=== PATIENT | female | born 1965 | race Two or more races ===

== ENCOUNTER 2022-08-08 21:28 | Emergency (ER) | payer MEDICAID, OTHER ==
[~2022-08-08] VITALS: Ht 162.6 cm; Wt 79.4 kg
--- NOTE | 2022-08-08 21:42 | NUR ---
OFFERED PT URINE CUP; PT YELLED AT THREW IT ON THE FLOOR. DR CATNOR DO AWARE. WILL TRY AGAIN LATER
--- NOTE | 2022-08-08 21:47 | NUR ---
[id number] FROM [facility] C/O POSSIBLE SEIZURE D/T SHAKINESS PT C/O H/A X30 MINS. DRANK COFFEE. PLACED IN BED, AAOX4, TALKATIVE- LOUD, BREATHING EVEN AND UNLABORED SATURATING AT 96%RA.
[2022-08-08] MEDS ORDERED: hydrALAZINE HCL IV 20 MG VIAL IV ONE (22:00)
[2022-08-08] MEDS ORDERED: hydrALAZINE HCL IV 20 MG VIAL ONE (22:32)
--- NOTE | 2022-08-08 22:35 | NUR ---
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
[2022-08-08 22:51] LABS: BASOPHILS % (AUTO) 0.7 % (0.0-2.0); EOSINOPHILS % (AUTO) 2.3 % (0.0-6.0); HEMATOCRIT 34 % (33-45); HEMOGLOBIN 11.2 g/dL (11.5-14.8); LYMPHOCYTES # (AUTO) 1.7 K/uL (0.8-4.8); LYMPHOCYTES % (AUTO) 26.3 % (20.0-44.0); MEAN CORPUSCULAR HGB CONC 33 g/dl (31.0-36.0); MEAN CORPUSCULAR VOLUME 87 fL (82-100); MONOCYTES # (AUTO) 0.4 K/uL (0.1-1.30); MONOCYTES % (AUTO) 5.8 % (2.0-12.0); NEUTROPHILS # (AUTO) 4.3 K/uL (1.8-8.9); NEUTROPHILS % (AUTO) 64.9 % (43.0-81.0); PLATELET COUNT (AUTO) 327 K/uL (150-450); RED BLOOD CELL COUNT(AUTO) 3.93 MIL/uL (4.0-5.2); WHITE BLOOD COUNT (AUTO) 6.6 K/uL (4.3-11.0)
[2022-08-08 23:01] LABS: CALCIUM, SERUM 8.8 mg/dL (8.5-10.1); CARBON DIOXIDE 25 mmol/L (21-32); CHLORIDE 106 mmol/L (98-107); CREATININE 0.9 mg/dL (0.6-1.3); GLUCOSE 93 mg/dL (74-106); POTASSIUM 3.6 mmol/L (3.5-5.1); SODIUM SERUM 139 mmol/L (136-145); UREA NITROGEN, BLOOD 18 mg/dL (7-18)
[2022-08-08 23:09] LABS: ALANINE AMINOTRANSFERASE 22 U/L (12-78); ALBUMIN 3.5 g/dL (3.4-5.0); ALKALINE PHOSPHATASE 75 U/L (46-116); ASPARTATE AMINOTRANSFERASE 19 U/L (15-37); BILIRUBIN,DIRECT 0.1 mg/dL (0.0-0.2); BILIRUBIN,TOTAL 0.2 mg/dL (0.2-1.0); TOTAL PROTEIN, SERUM 6.5 g/dL (6.4-8.2)
--- NOTE | 2022-08-08 23:13 | NUR ---
PATIENT TAKEN TO CT VIA [facility]INS
--- NOTE | 2022-08-09 00:05 | NUR ---
FF UP LAB ABOUT REPEAT TROP AT 0030H
--- NOTE | 2022-08-09 00:40 | NUR ---
SCALLOP RAKER AT PT'S BEDSIDE
--- NOTE | 2022-08-09 02:12 | NUR ---
[facility] CALLED ETA 30-45 MINUTES.
--- NOTE | 2022-08-09 02:42 | NUR ---
[facility] AT PT'S BEDSIDE TO D/C PT
--- NOTE | 2022-08-09 03:23 | NUR ---
Patient discharged to home in stable condition. Written and verbal after care instructions given. Patient verbalizes understanding of instruction.
[2022-08-09 03:24] VITALS: BP 134/81
== END 2022-08-09 03:25 | disposition home or self-care (01) ==
LOC: ER 21:30
DX: I16.0 Hypertensive urgency (principal); R51.9 Headache, unspecified; I10 Essential (primary) hypertension; K21.9 Gastro-esophageal reflux disease without esophagitis; Z59.01 Sheltered homelessness
CPT/HCPCS: 36415; 70450-TC; 71045-TC; 80048-TC; 80076-TC; 84484-TC; 85025-TC; 85730-TC; J0360

== ENCOUNTER 2023-11-18 00:33 | Emergency (ER) | payer MEDICAID ==
[~2023-11-18] VITALS: Ht 162.6 cm; Wt 77.1 kg
[2023-11-18] MEDS: IBUPROFEN 400 MG TABLET PO ONE (01:42)
[2023-11-18] MEDS: ONDANSETRON 4 MG TAB.RAPDIS SL ONE (01:57)
[2023-11-18 04:42] VITALS: BP 131/75; TEMP 98.1; O2SAT 98
== END 2023-11-18 04:43 | disposition home or self-care (01) ==
LOC: ER 00:44
DX: M25.551 Pain in right hip (principal); M25.511 Pain in right shoulder; I10 Essential (primary) hypertension; K21.9 Gastro-esophageal reflux disease without esophagitis; F19.10 Other psychoactive substance abuse, uncomplicated; Z59.01 Sheltered homelessness; W18.39XA Other fall on same level, initial encounter; Y93.89 Activity, other specified; Y92.89 Other specified places as the place of occurrence of the external cause; Y99.8 Other external cause status

== ENCOUNTER 2024-03-15 17:25 | Inpatient (IN) | payer MEDICAID ==
[~2024-03-15] VITALS: Ht 162.6 cm; Wt 83.5 kg
[2024-03-15] MEDS ORDERED: HYDROMORPHONE 1 MG/1 ML DISP.SYRIN ONE (17:46)
[2024-03-15] MEDS ORDERED: ONDANSETRON HCL/PF 4 MG/2 ML VIAL ONE (17:46)
[2024-03-15] MEDS: IV NS 0.9% 1,000 ML BAG IV ONE (18:00)
[2024-03-15] MEDS ORDERED: ALBU8.5H8 IH (18:23)
[2024-03-15] MEDS ORDERED: CARV3.122 PO (18:23)
[2024-03-15] MEDS ORDERED: OMEP20CA15 PO (18:23)
[2024-03-15] MEDS ORDERED: GABA300C PO (18:23)
[2024-03-15] MEDS ORDERED: LISI1TAB55 PO (18:23)
[2024-03-15] MEDS ORDERED: ATOR20TA PO (18:23)
[2024-03-15] MEDS ORDERED: FLUT1DIS3 INH (18:23)
[2024-03-15] MEDS ORDERED: DULO20CA19 PO (18:23)
[2024-03-15] MEDS ORDERED: IBUP-1957 PO (18:23)
[2024-03-15] MEDS ORDERED: ACET325T53 PO (18:23)
[2024-03-15] MEDS: HYDROMORPHONE INJ 2 MG/ML DISP.SYRIN IV ONE (18:25)
[2024-03-15 18:30] LABS: BASOPHILS % (AUTO) 0.6 % (0.0-2.0); EOSINOPHILS # (AUTO) 0.2 K/uL (0.0-0.7); EOSINOPHILS % (AUTO) 2.7 % (0.0-6.0); HEMATOCRIT 32 % (33-45); HEMOGLOBIN 10.6 g/dL (11.5-14.8); LYMPHOCYTES # (AUTO) 1.8 K/uL (0.8-4.8); LYMPHOCYTES % (AUTO) 26.2 % (20.0-44.0); MEAN CORPUSCULAR HEMOGLOBIN 29 PG (26.0-33.0); MEAN CORPUSCULAR HGB CONC 34 g/dl (31.0-36.0); MEAN CORPUSCULAR VOLUME 87 fL (82-100); MONOCYTES # (AUTO) 0.4 K/uL (0.1-1.30); NEUTROPHILS # (AUTO) 4.5 K/uL (1.8-8.9); NEUTROPHILS % (AUTO) 64.5 % (43.0-81.0); PLATELET COUNT (AUTO) 559 K/uL (150-450); RED BLOOD CELL COUNT(AUTO) 3.63 MIL/uL (4.0-5.2); RED CELL DISTRIBUTION WIDTH 15.5 % (11.5-15.0)
[2024-03-15] MEDS: ONDANSETRON 4 MG TAB.RAPDIS PO ONE (18:34)
[2024-03-15] MEDS: ONDANSETRON HCL/PF 4 MG/2 ML VIAL IV ONE (18:35)
[2024-03-15 18:42] LABS: CALCIUM, SERUM 9.4 mg/dL (8.5-10.1); CREATININE 0.8 mg/dL (0.6-1.3); POTASSIUM 3.1 mmol/L (3.5-5.1)
[2024-03-15] MEDS ORDERED: MAGNESIUM HYDROXIDE 30 ML UDC PO PRN (19:30)
[2024-03-15] MEDS ORDERED: Z GUARD REMEDY 4 OZ OINT TP PRN (19:30)
[2024-03-15] MEDS ORDERED: MAG HYDROX/AL HYDROX/SIMETH 30 ML UDC PO PRN (19:30)
[2024-03-15] MEDS ORDERED: ACETAMINOPHEN 325 MG TABLET PO PRN (19:30)
[2024-03-15] MEDS ORDERED: MORPHINE SULFATE INJ 4 MG/ML DISP.SYRIN ONE (19:34)
[2024-03-15] MEDS: POTASSIUM CHLORIDE 20 MEQ TAB.PRT.SR PO ONE (19:40)
[2024-03-15] MEDS: MORPHINE SULFATE INJ 2 MG/ML DISP.SYRIN IV PRN (19:41)
[2024-03-15 20:30] VITALS: BP 126/89; TEMP 97.9; O2SAT 98
[2024-03-15] MEDS ORDERED: ALBUTEROL FS 2.5 MG/3 ML VIAL.NEB NEB PRN (21:00)
[2024-03-15 21:39] VITALS: BP 126/83; TEMP 98; O2SAT 98
[2024-03-15] MEDS: ONDANSETRON HCL/PF 4 MG/2 ML VIAL IVP PRN (21:52)
[2024-03-16 07:35] LABS: BASOPHILS % (AUTO) 0.8 % (0.0-2.0); EOSINOPHILS # (AUTO) 0.2 K/uL (0.0-0.7); EOSINOPHILS % (AUTO) 3.7 % (0.0-6.0); HEMATOCRIT 31 % (33-45); HEMOGLOBIN 9.8 g/dL (11.5-14.8); LYMPHOCYTES # (AUTO) 1.4 K/uL (0.8-4.8); LYMPHOCYTES % (AUTO) 23.7 % (20.0-44.0); MEAN CORPUSCULAR HEMOGLOBIN 29 PG (26.0-33.0); MEAN CORPUSCULAR HGB CONC 32 g/dl (31.0-36.0); MEAN CORPUSCULAR VOLUME 91 fL (82-100); MONOCYTES # (AUTO) 0.5 K/uL (0.1-1.30); MONOCYTES % (AUTO) 8.7 % (2.0-12.0); NEUTROPHILS # (AUTO) 3.8 K/uL (1.8-8.9); NEUTROPHILS % (AUTO) 63.1 % (43.0-81.0); PLATELET COUNT (AUTO) 303 K/uL (150-450); RED BLOOD CELL COUNT(AUTO) 3.39 MIL/uL (4.0-5.2); RED CELL DISTRIBUTION WIDTH 15.6 % (11.5-15.0)
[2024-03-16 08:04] LABS: CALCIUM, SERUM 8.4 mg/dL (8.5-10.1); CREATININE 0.7 mg/dL (0.6-1.3); MAGNESIUM 1.7 mg/dL (1.8-2.4); PHOSPHORUS 3.4 mg/dL (2.5-4.9); POTASSIUM 4.2 mmol/L (3.5-5.1)
[2024-03-16 08:30] VITALS: BP 116/84; TEMP 97.9; O2SAT 95
[2024-03-16] MEDS: GABAPENTIN 300 MG CAPSULE PO SCH (09:00)
[2024-03-16] MEDS ORDERED: HYDROCHLOROTHIAZIDE 25 MG TABLET PO SCH (09:00)
[2024-03-16] MEDS: ATORVASTATIN 10 MG TABLET PO SCH (09:01)
[2024-03-16] MEDS: IBUPROFEN 400 MG TABLET PO SCH (09:01)
[2024-03-16] MEDS: CARVEDILOL 3.125 MG TABLET PO SCH (09:01)
[2024-03-16] MEDS: DULOXETINE HCL 20 MG CAPSULE.DR PO SCH (09:02)
[2024-03-16] MEDS: LISINOPRIL (20MG) 20 MG TABLET PO SCH (09:02)
[2024-03-16] MEDS: PANTOPRAZOLE 40 MG TABLET.DR PO SCH (09:03)
[2024-03-16] MEDS: FLUTICASONE/VILANTEROL 1 EACH BLST.W.DEV IH SCH (10:22)
[2024-03-16] MEDS: MAGNESIUM OXIDE 400 MG TABLET PO ONE (10:22)
[2024-03-16 10:59] LABS: CHOLESTEROL 141 mg/dL (<200); FERRITIN 116 ng/mL (8-388); HDL CHOLESTEROL 91 mg/dL (40-60); LDL 38 mg/dL (0-99); TRIGLYCERIDES 45 mg/dL (30-150)
[2024-03-16 11:32] LABS: IRON, SERUM 35 ug/dl (50-175); TOTAL IRON BINDING CAPACITY 290 ug/dl (250-450)
[2024-03-16] MEDS: SOD FERRIC GLUC 125 MG in IV NS 0.9% 100 ML IV SCH (14:27)
[2024-03-16 16:00] VITALS: BP 90/58; TEMP 98.7; O2SAT 97
[2024-03-16 20:00] VITALS: BP 110/58; TEMP 98.2; O2SAT 95; O2SAT 97
[2024-03-16] MEDS ORDERED: MAGNESIUM OXIDE 400 MG TABLET PO SCH (22:00)
[2024-03-17 00:40] VITALS: BP 102/73; O2SAT 100
[2024-03-17 06:46] LABS: BASOPHILS % (AUTO) 0.9 % (0.0-2.0); EOSINOPHILS # (AUTO) 0.4 K/uL (0.0-0.7); EOSINOPHILS % (AUTO) 7.2 % (0.0-6.0); HEMATOCRIT 28 % (33-45); LYMPHOCYTES # (AUTO) 1.5 K/uL (0.8-4.8); LYMPHOCYTES % (AUTO) 26.7 % (20.0-44.0); MEAN CORPUSCULAR HEMOGLOBIN 28 PG (26.0-33.0); MEAN CORPUSCULAR HGB CONC 32 g/dl (31.0-36.0); MEAN CORPUSCULAR VOLUME 88 fL (82-100); MONOCYTES # (AUTO) 0.5 K/uL (0.1-1.30); MONOCYTES % (AUTO) 8.8 % (2.0-12.0); NEUTROPHILS # (AUTO) 3.1 K/uL (1.8-8.9); NEUTROPHILS % (AUTO) 56.4 % (43.0-81.0); PLATELET COUNT (AUTO) 418 K/uL (150-450); RED BLOOD CELL COUNT(AUTO) 3.16 MIL/uL (4.0-5.2); RED CELL DISTRIBUTION WIDTH 15.2 % (11.5-15.0); WHITE BLOOD COUNT (AUTO) 5.5 K/uL (4.3-11.0)
[2024-03-17 07:29] LABS: CALCIUM, SERUM 8.5 mg/dL (8.5-10.1); CREATININE 0.7 mg/dL (0.6-1.3); POTASSIUM 4.1 mmol/L (3.5-5.1)
[2024-03-17 08:00] VITALS: BP 107/72; TEMP 98.1; O2SAT 95
[2024-03-17 08:52] LABS: MAGNESIUM 1.9 mg/dL (1.8-2.4); PHOSPHORUS 3.4 mg/dL (2.5-4.9)
[2024-03-17 09:07] LABS: CHOLESTEROL 130 mg/dL (<200); HDL CHOLESTEROL 79 mg/dL (40-60); LDL 36 mg/dL (0-99); TRIGLYCERIDES 83 mg/dL (30-150)
[2024-03-17] MEDS ORDERED: OXYC10TA49 PO ×2 (12:23→17:36)
[2024-03-17] MEDS ORDERED: FERR325T24 PO (12:23)
[2024-03-17] MEDS ORDERED: FERR325T28 PO (17:36)
[2024-03-17 20:00] VITALS: BP 98/58; TEMP 98.1; O2SAT 95
[2024-03-18 06:01] LABS: BASOPHILS % (AUTO) 0.8 % (0.0-2.0); EOSINOPHILS # (AUTO) 0.5 K/uL (0.0-0.7); EOSINOPHILS % (AUTO) 9.7 % (0.0-6.0); HEMATOCRIT 27 % (33-45); HEMOGLOBIN 8.8 g/dL (11.5-14.8); LYMPHOCYTES # (AUTO) 1.4 K/uL (0.8-4.8); LYMPHOCYTES % (AUTO) 26.9 % (20.0-44.0); MEAN CORPUSCULAR HEMOGLOBIN 29 PG (26.0-33.0); MEAN CORPUSCULAR HGB CONC 33 g/dl (31.0-36.0); MEAN CORPUSCULAR VOLUME 88 fL (82-100); MONOCYTES # (AUTO) 0.5 K/uL (0.1-1.30); MONOCYTES % (AUTO) 10.1 % (2.0-12.0); NEUTROPHILS # (AUTO) 2.7 K/uL (1.8-8.9); NEUTROPHILS % (AUTO) 52.5 % (43.0-81.0); PLATELET COUNT (AUTO) 405 K/uL (150-450); RED BLOOD CELL COUNT(AUTO) 3.07 MIL/uL (4.0-5.2); RED CELL DISTRIBUTION WIDTH 15.4 % (11.5-15.0); WHITE BLOOD COUNT (AUTO) 5.1 K/uL (4.3-11.0)
[2024-03-18 06:26] LABS: CALCIUM, SERUM 8.2 mg/dL (8.5-10.1); CREATININE 0.7 mg/dL (0.6-1.3); POTASSIUM 4.3 mmol/L (3.5-5.1)
[2024-03-18 08:48] VITALS: BP 121/99
[2024-03-18] MEDS ORDERED: OXYC10TA49 PO (12:20)
[2024-03-18] MEDS ORDERED: IBUP-1957 PO (12:20)
== END 2024-03-18 11:31 | disposition home or self-care (01) | DRG 144 ==
LOC: ER 17:30 → MED 20:36
PROVIDERS: ADMIT Nurse Practitioner Family
DX: S22.32XA Fracture of one rib, left side, initial encounter for closed fracture (principal); I11.0 Hypertensive heart disease with heart failure; E87.1 Hypo-osmolality and hyponatremia; I50.9 Heart failure, unspecified; S83.012A Lateral subluxation of left patella, initial encounter; E66.9 Obesity, unspecified; D50.9 Iron deficiency anemia, unspecified; M25.551 Pain in right hip; K21.9 Gastro-esophageal reflux disease without esophagitis; W01.0XXA Fall on same level from slipping, tripping and stumbling without subsequent striking against object, initial encounter; E87.6 Hypokalemia; E78.5 Hyperlipidemia, unspecified; G89.4 Chronic pain syndrome; J45.909 Unspecified asthma, uncomplicated; Z68.31 Body mass index [BMI] 31.0-31.9, adult; Y93.9 Activity, unspecified; Y92.009 Unspecified place in unspecified non-institutional (private) residence as the place of occurrence of the external cause; G62.9 Polyneuropathy, unspecified; M19.90 Unspecified osteoarthritis, unspecified site; M25.571 Pain in right ankle and joints of right foot; Z96.641 Presence of right artificial hip joint; I25.10 Atherosclerotic heart disease of native coronary artery without angina pectoris; M25.562 Pain in left knee
CPT/HCPCS: 36415; 71045-TC; 71111-TC; 72170-TC; 73502; 73564-TC; 73610-TC; 73700-TC; 80048-TC; 80061-TC; 82728-TC; 83540-TC; 83735-TC; 84100-TC; 84439-TC; 84443-TC; 84484-TC; 85025-TC; 93307-TC; 97116-TC; 97530-TC; A4223; G0378; J1171; J2270; J2405; J2916; J7030; J7050

== ENCOUNTER 2024-10-09 15:07 | Emergency (ER) | payer MEDICAID ==
[~2024-10-09] VITALS: Ht 160 cm; Wt 74.4 kg
[~2024-10-09 15:07] MED LIST: ACET325T53 PO; ALBU8.5H8 IH; ATOR20TA PO; CARV3.122 PO; DULO20CA19 PO; FERR325T28 PO; FLUT1DIS3 INH; GABA300C PO; IBUP-1957 PO; LISI1TAB55 PO; OMEP20CA15 PO; OXYC10TA49 PO
[2024-10-09 15:56] LABS: BASOPHILS # (AUTO) 0.1 K/uL (0.0-0.2); BASOPHILS % (AUTO) 0.8 % (0.0-2.0); EOSINOPHILS # (AUTO) 0.7 K/uL (0.0-0.7); EOSINOPHILS % (AUTO) 10.8 % (0.0-6.0); HEMATOCRIT 34 % (33-45); HEMOGLOBIN 11.3 g/dL (11.5-14.8); LYMPHOCYTES # (AUTO) 1.9 K/uL (0.8-4.8); MEAN CORPUSCULAR HEMOGLOBIN 29 PG (26.0-33.0); MEAN CORPUSCULAR HGB CONC 33 g/dl (31.0-36.0); MEAN CORPUSCULAR VOLUME 87 fL (82-100); MONOCYTES # (AUTO) 0.5 K/uL (0.1-1.30); MONOCYTES % (AUTO) 7.7 % (2.0-12.0); NEUTROPHILS # (AUTO) 3.5 K/uL (1.8-8.9); NEUTROPHILS % (AUTO) 52.7 % (43.0-81.0); PLATELET COUNT (AUTO) 277 K/uL (150-450); RED BLOOD CELL COUNT(AUTO) 3.92 MIL/uL (4.0-5.2); RED CELL DISTRIBUTION WIDTH 13.5 % (11.5-15.0); WHITE BLOOD COUNT (AUTO) 6.7 K/uL (4.3-11.0)
[2024-10-09 16:09] LABS: ALANINE AMINOTRANSFERASE 25 U/L (12-78); ALBUMIN 3.7 g/dL (3.4-5.0); ALKALINE PHOSPHATASE 91 U/L (46-116); ASPARTATE AMINOTRANSFERASE 24 U/L (15-37); BILIRUBIN,DIRECT 0.1 mg/dL (0.0-0.2); BILIRUBIN,TOTAL 0.4 mg/dL (0.2-1.0); CALCIUM, SERUM 9.3 mg/dL (8.5-10.1); CARBON DIOXIDE 30 mmol/L (21-32); CHLORIDE 100 mmol/L (98-107); CREATININE 0.9 mg/dL (0.6-1.3); GLUCOSE 96 mg/dL (74-106); POTASSIUM 3.5 mmol/L (3.5-5.1); SODIUM SERUM 136 mmol/L (136-145); TOTAL PROTEIN, SERUM 7.4 g/dL (6.4-8.2); UREA NITROGEN, BLOOD 25 mg/dL (7-18)
[2024-10-09] MEDS: IV NS 0.9% 1,000 ML BAG IV ONE (16:57)
[2024-10-09 19:24] VITALS: BP 127/62; TEMP 98; O2SAT 98
== END 2024-10-09 19:24 | disposition home or self-care (01) ==
LOC: ER 15:07
DX: R56.9 Unspecified convulsions (principal); M25.562 Pain in left knee; I10 Essential (primary) hypertension; Z79.1 Long term (current) use of non-steroidal anti-inflammatories (NSAID); Z79.51 Long term (current) use of inhaled steroids; Z79.899 Other long term (current) drug therapy
CPT/HCPCS: 36415; 70450-TC; 71045-TC; 73564-TC; 80048-TC; 80076-TC; 82962-TC; 84484-TC; 85025-TC